=== PATIENT | male | born 1985 | race Caucasian/White ===

== ENCOUNTER 2019-09-29 16:02 | Emergency (ER) | payer BC, SELFPAY ==
[2019-09-29 16:09] VITALS: BP 165/94; PULSE 71; RESP 17; TEMP 36.8; O2SAT 99; BMI 30.1
[2019-09-29 16:22] VITALS: BP 165/94; PULSE 71; RESP 17; TEMP 36.8; O2SAT 99
--- NOTE | 2019-09-29 16:42 | HMH.EDUTC ---
[facility] [place] Clinical Impression: Cellulitis Qualifiers: Site of cellulitis: unspecified site Qualified Code(s): L03.90 - Cellulitis, unspecified Disposition: Home, Self-Care Condition on Discharge: Good Instructions: Cellulitis, Athlete's Foot, DI for Athlete's Foot Additional Instructions: Clean area well before applying cream *Take medication as prescribed *Follow up with Podiatry or Family doctor if symptoms continue or worsen Return if needed Straight to ER if any life threatening symptoms Prescriptions: cephALEXin [Keflex 500mg Cap] 500 mg PO Q6H 10 Days #40 cap Transmission Status: Received by [facility] Miconazole Nitrate [Miconazole 2% Cream 45gm] 1 applicatio TOPICAL BID #1 tube Transmission Status: Received by [facility] Referrals: Provider,Referral, [Primary Care Provider] - Parisa Saldivar DPM [Staff Physician] - As needed (Call office for appointment) Time of Disposition: 16:53 Medical Decision Making - Papa Inquiry Pt receiving controlled substance: No Papa was queried for this patient: No Vital Signs: 09/29/19 16:09 09/29/19 16:22 09/29/19 17:00 Temperature 98.2 F 98.2 F 98.2 F Temperature Source Oral Oral Pulse Rate 71 Pulse Rate [Radial] 71 71 Respiratory Rate 17 17 17 Blood Pressure 165/94 H Blood Pressure [Right Arm] 165/94 H 165/94 H Blood Pressure Mean [Right Arm] 117 117 Blood Pressure Source [Right Arm] Automatic Cuff Automatic Cuff Blood Pressure Position [Right Arm] Sitting Sitting 02 Sat by Pulse Oximetry 99 99 Oxygen Delivery Method Room Air Room Air [facility] [place] - General Stated complaint: Rash Right foot and leg Time Seen by Provider: 09/29/19 16:20 Mode of Arrival: Ambulatory Source of Information: Patient Limitations: No Limitations Description of Symptoms (Recalled from Triage Doc. by RN): Rash on the top and side of right foot for approx 2 weeks. States he thinks he had poison uli that has gotten worse and turned to staph HEENT Symptoms (Recalled from RN notes): No Resp Symptoms (Recalled from RN notes): No Skin Symptoms (Recalled from RN notes): Yes MS Symptoms (Recalled from RN notes): No Functional Status (Recalled from RN notes): WNL - History of Present Illness Provider Complaint: Patient states that for the last couple of weeks he has been having areas on his right foot and ankle area that was itching, red and irritated States that he thinks he may have have beem poison uli or something that has turned into staph now States that he has used several over the counter creams and nothing has helped States that rash will get itcy and feel dry then crack and drain at times - Related Data Home Medications Medication Instructions Recorded Confirmed buprenorphine 8 mg-naloxone 2 mg 2.5 tab SUBLINGUAL DAILY 08/19/19 09/29/19 sublingual tablet Previous Rx's Medication Instructions Recorded Miconazole Nitrate [Miconazole 2% 1 applicatio TOPICAL BID #1 tube 09/29/19 Cream 45gm] cephALEXin [Keflex 500mg Cap] 500 mg PO Q6H 10 Days #40 cap 09/29/19 Allergies Allergy/AdvReac Type Severity Reaction Status Date / Time No Known Allergies Allergy Verified 08/19/19 15:46 - Worker's Comp Is this a Worker's Comp case?: No [facility] [place] History - Hepatitis A Screen Drug use history?: No High risk sexual behaviors?: No History of sexually transmitted infection?: No Currently employed?: No Childcare worker?: No Do you have indoor plumbing?: Yes Do you have electricity?: Yes Attestation statement:: This patient has been screened for Hepatitis A risk factors. I have reviewed the patient's past medical history: Yes - Social History Smoking Status: Current every day smoker Tobacco Type: cigarettes # Packs/Day (cigarettes): 1 Alcohol Intake: never Occupational Status: other ROS Obtained: Yes All systems reviewed & no additional complaints, Yes Systems reviewed as appropriate & no additional complaints - Constit
[2019-09-29 17:00] VITALS: BP 165/94; PULSE 71; RESP 17; TEMP 36.8; O2SAT 99
== END 2019-09-29 17:02 | disposition home or self-care (01) ==
PROVIDERS: Emergency Provider Nurse Practitioner
DX: L03.115 Cellulitis of right lower limb (principal); F17.210 Nicotine dependence, cigarettes, uncomplicated
CPT/HCPCS: 99201

== ENCOUNTER 2019-10-14 13:10 | Emergency (ER) | payer BC, SELFPAY ==
[2019-10-14 13:31] VITALS: BP 131/78; PULSE 90; RESP 18; TEMP 36.6; O2SAT 98; BMI 30.1
--- NOTE | 2019-10-14 13:36 | HMH.EDUTC ---
[facility] – [place] Disposition Clinical Impression: Psoriasis Disposition: Home, Self-Care Condition on Discharge: Good Instructions: Psoriasis, DI for Psoriasis Additional Instructions: Don't start the oral steroids until tomorrow. You can start applying the topical steroid today. You may need to start seeing a stone driller helper, so please get a regular doctor and discuss a referral. Rest your foot and stay off of it for the next couple of days. Prescriptions: dexAMETHasone [Dexpak] 1.5 mg PO DIRECTED 10 Days #1 tab.ds.pk Transmission Status: Received by [facility] Hydrocortisone [Hydrocortisone 2.5% Cream 28gm Tube] 1 applicatio TP TID 7 Days #1 tube Transmission Status: Received by [facility] Referrals: Provider,Referral, MD [Primary Care Provider] - Forms: Work/School Release Time of Disposition: 13:53 Medical Decision Making - Medical Records Medical records reviewed: No: I reviewed the patient's medical records. - Papa Inquiry Pt receiving controlled substance: No Vital Signs: 10/14/19 13:31 10/14/19 14:02 Temperature 97.8 F 97.8 F Temperature Source Oral Oral Pulse Rate 78 Pulse Rate [Right Brachial] 90 Respiratory Rate 18 16 Blood Pressure 131/78 Blood Pressure [Right Arm] 131/78 Blood Pressure Mean [Right Arm] 95 Blood Pressure Source Automatic Cuff Blood Pressure Source [Right Arm] Automatic Cuff Blood Pressure Position Sitting Blood Pressure Position [Right Arm] Sitting 02 Sat by Pulse Oximetry 98 Oxygen Delivery Method Room Air Room Air Orders (Tests/Meds): ED MEDICATIONS Discontinued Medications Generic Name Dose Route Start Last Admin Trade Name Walterq PRN Reason Stop Dose Admin Methylprednisolone Sodium Succinate 125 mg 10/14/19 13:45 10/14/19 13:54 Solu-Medrol 125mg/2ml Vial IM 10/14/19 13:46 125 mg ONCE ONE Administration [facility] [place] HPI - General Stated complaint: skin pain on legs Time Seen by Provider: 10/14/19 13:36 Mode of Arrival: Ambulatory Source of Information: Patient Limitations: No Limitations Description of Symptoms (Recalled from Triage Doc. by RN): Pt c/o rash on his leg and foot HEENT Symptoms (Recalled from RN notes): No Resp Symptoms (Recalled from RN notes): No Skin Symptoms (Recalled from RN notes): Yes (rash) MS Symptoms (Recalled from RN notes): No Functional Status (Recalled from RN notes): na - History of Present Illness Provider Complaint: He has a history of psoriais that flares up periodically. Over the past 2 weeks he has been having a break out on his right foot and ankle. He does not have any medications at home to treat it like he usually does. He does not currently have a pcp. His work requires him to wear heavy boots. Walking all day in the heavy boots makes the skin irritation worse. - Related Data Home Medications Medication Instructions Recorded Confirmed buprenorphine 8 mg-naloxone 2 mg 2.5 tab SUBLINGUAL DAILY 08/19/19 09/29/19 sublingual tablet Previous Rx's Medication Instructions Recorded Miconazole Nitrate [Miconazole 2% 1 applicatio TOPICAL BID #1 tube 09/29/19 Cream 45gm] cephALEXin [Keflex 500mg Cap] 500 mg PO Q6H 10 Days #40 cap 09/29/19 Hydrocortisone [Hydrocortisone 1 applicatio TP TID 7 Days #1 tube 10/14/19 2.5% Cream 28gm Tube] dexAMETHasone [Dexpak] 1.5 mg PO DIRECTED 10 Days #1 10/14/19 tab.ds.pk Allergies Allergy/AdvReac Type Severity Reaction Status Date / Time No Known Allergies Allergy Verified 10/14/19 13:34 - Worker's Comp Is this a Worker's Comp case?: No [facility] History - Hepatitis A Screen Drug use history?: No High risk sexual behaviors?: No History of sexually transmitted infection?: No Currently employed?: No Childcare worker?: No Do you have indoor plumbing?: Yes Do you have electricity?: Yes Attestation statement:: This patient has been screened for Hepatitis A risk factors. I have reviewed the patient's past medical
[2019-10-14 14:02] VITALS: BP 131/78; PULSE 78; RESP 16; TEMP 36.6; O2SAT 98
== END 2019-10-14 14:02 | disposition home or self-care (01) ==
PROVIDERS: Emergency Provider Nurse Practitioner Family
DX: L40.9 Psoriasis, unspecified (principal); F17.210 Nicotine dependence, cigarettes, uncomplicated
CPT/HCPCS: 96372; 99201

== ENCOUNTER 2019-11-07 15:01 | Emergency (ER) | payer BC, SELFPAY ==
[2019-11-07 15:23] VITALS: BP 163/86; PULSE 71; RESP 20; TEMP 36.8; O2SAT 99; BMI 30.8
--- NOTE | 2019-11-07 15:28 | HMH.EDUTC ---
[facility] [place] Disposition Clinical Impression: Otitis media Qualifiers: Otitis media type: unspecified Laterality: left Qualified Code(s): H66.92 - Otitis media, unspecified, left ear Otitis externa Qualifiers: Otitis externa type: unspecified type Chronicity: unspecified Laterality: right Qualified Code(s): H60.91 - Unspecified otitis externa, right ear Disposition: Home, Self-Care Condition on Discharge: Good Instructions: Middle Ear Infection, Middle Ear Infections (Alternative Therapy), DI for Otitis Externa, Otitis Externa, Ofloxacin Otic, Amoxicillin Additional Instructions: Take medication as prescribed *Follow up with family doctor if no improvement or any worsening of symptoms Return if needed Over the counter Motrin and/or Tylenol as directed on package for pain and fever Straight to ER if any life threatening symptoms Prescriptions: Amoxicillin [Amoxicillin 500mg Cap] 500 mg PO TID #30 cap Transmission Status: Pending to [facility] Ofloxacin [Floxin 0.3% OTIC Solution 5mL] 5 drops EAR-RIGHT BID 7 Days #1 bottle Transmission Status: Pending to [facility] Referrals: Provider,Referral, MD [Primary Care Provider] - As needed Time of Disposition: 15:37 Medical Decision Making - Papa Inquiry Pt receiving controlled substance: No Papa was queried for this patient: No Vital Signs: 11/07/19 15:23 Temperature 98.2 F Temperature Source Oral Pulse Rate [Right Brachial] 71 Respiratory Rate 20 Blood Pressure [Right Arm] 163/86 H Blood Pressure Mean [Right Arm] 111 Blood Pressure Source [Right Arm] Automatic Cuff Blood Pressure Position [Right Arm] Sitting 02 Sat by Pulse Oximetry 99 Oxygen Delivery Method Room Air [facility] [place] HPI - General Stated complaint: ear infection both ears Time Seen by Provider: 11/07/19 15:28 Mode of Arrival: Ambulatory Source of Information: Patient Limitations: No Limitations Description of Symptoms (Recalled from Triage Doc. by RN): PATIENT C/O RIGHT EAR PAIN THAT STARTED LAST WEEK AND IS NOW BILATERALLY. DENIES FEVER. DOES C/O DECREASED HEARING. HEENT Symptoms (Recalled from RN notes): Yes Resp Symptoms (Recalled from RN notes): No Skin Symptoms (Recalled from RN notes): No MS Symptoms (Recalled from RN notes): No Functional Status (Recalled from RN notes): WNL - History of Present Illness Provider Complaint: Patient states that he has been having pain and drainage from right ear for about a week with some swelling in right ear and hurts when he touches it State that for the last couple of days he has been having pain in his left ear also States that today pain was worse so he came in to get them checked - Related Data Home Medications Medication Instructions Recorded Confirmed buprenorphine 8 mg-naloxone 2 mg 2.5 tab SUBLINGUAL DAILY 08/19/19 09/29/19 sublingual tablet Previous Rx's Medication Instructions Recorded Miconazole Nitrate [Miconazole 2% 1 applicatio TOPICAL BID #1 tube 09/29/19 Cream 45gm] cephALEXin [Keflex 500mg Cap] 500 mg PO Q6H 10 Days #40 cap 09/29/19 Hydrocortisone [Hydrocortisone 1 applicatio TP TID 7 Days #1 tube 10/14/19 2.5% Cream 28gm Tube] dexAMETHasone [Dexpak] 1.5 mg PO DIRECTED 10 Days #1 10/14/19 tab.ds.pk Amoxicillin [Amoxicillin 500mg 500 mg PO TID #30 cap 11/07/19 Cap] Ofloxacin [Floxin 0.3% OTIC 5 drops EAR-RIGHT BID 7 Days #1 11/07/19 Solution 5mL] bottle Allergies Allergy/AdvReac Type Severity Reaction Status Date / Time No Known Allergies Allergy Verified 10/14/19 13:34 - Worker's Comp Is this a Worker's Comp case?: No [facility] History - Hepatitis A Screen Drug use history?: No High risk sexual behaviors?: No History of sexually transmitted infection?: No Currently employed?: No Childcare worker?: No Do you have indoor plumbing?: Yes Do you have electricity?: Yes Attestation statement:: This patient has been screened for Hepatitis A risk factors. I have reviewed th
[2019-11-07 15:35] VITALS: BP 163/86; PULSE 71; RESP 20; TEMP 36.8; O2SAT 99
== END 2019-11-07 15:40 | disposition home or self-care (01) ==
PROVIDERS: Emergency Provider Nurse Practitioner
DX: H66.92 Otitis media, unspecified, left ear (principal); H60.91 Unspecified otitis externa, right ear; F17.210 Nicotine dependence, cigarettes, uncomplicated
CPT/HCPCS: 99201

== ENCOUNTER 2020-03-11 17:13 | Emergency (ER) | payer BC, SELFPAY ==
[2020-03-11 17:20] VITALS: BP 141/97; PULSE 84; RESP 18; TEMP 36.7; O2SAT 100; BMI 33.0
--- NOTE | 2020-03-11 17:24 | HMH.EDUTC ---
[facility] [place] Disposition Clinical Impression: Scabies, Sore throat Disposition: Home, Self-Care Condition on Discharge: Good Instructions: Sore Throat, Scabies, DI for Scabies Additional Instructions: Use cream as prescribed Apply cream from your neck to your toes before bed, lay down and leave on at least 8 hours then rinse off in shower If no improvement or any worsening of symptoms follow up with Family Doctor Follow up with Dermatology if rash continues or no improvement Over the counter Hydrocortisone cream may help with itching of the rash *Monitor Temp, Over the counter Motrin or Tylenol as directed/as needed Tylenol every 4 hours and Motrin every 6 hours (as long as your family doctor has told you that you can take it) for fever or pain. and straight to ER if unable to lower temp less than 101.0 after medication given *Warm salt water gargles may help to soothe the throat *Throat Lozenges *Warm fluids like tea with honey may help to soothe the throat *Sleep elevated *Humidifier/Vaporizer Your throat swab was sent for culture. Those results are typically sent to your primary care. Be sure to follow up in 2-3 days with your family doctor/primary care physician if no improvement so they can review those result and treat if necessary. If you don?t have a primary care doctor, I recommend you get one but in the mean time, you will have to return to a walk in clinic Follow up IMMEDIATELY for new or worsening symptoms or no Noticeable improvement over the next 48-72 hours. 911 for difficulty breathing or swallowing You was tested for today for COVID19 your test result should be back later this evening, you may call back later this evening to see if your test results are back and the result You was given a handout with instructions for Self Quarantine and Self isolation for while you wait on test results and what to do if they are positive Prescriptions: Permethrin [Elimite 5% cream 60gm tube] 1 applicatio TP ONCE #1 tube Transmission Status: Received by [facility] Referrals: PCP,No [Primary Care Provider] - As needed Forms: Work/School Release Time of Disposition: 17:53 Medical Decision Making - Papa Inquiry Pt receiving controlled substance: No Papa was queried for this patient: No Vital Signs: 03/11/20 17:20 Temperature 98.1 F Temperature Source Oral Pulse Rate [Radial] 84 Respiratory Rate 18 Blood Pressure [Right Arm] 141/97 H Blood Pressure Mean [Right Arm] 111 Blood Pressure Source [Right Arm] Automatic Cuff Blood Pressure Position [Right Arm] Sitting 02 Sat by Pulse Oximetry 100 Oxygen Delivery Method Room Air - Lab Data Lab results reviewed: Yes: I reviewed the patient's lab results. Orders (Tests/Meds): ED MEDICATIONS Discontinued Medications Generic Name Dose Route Start Last Admin Trade Name Glory PRN Reason Stop Dose Admin Methylprednisolone Sodium Succinate 125 mg 03/11/20 17:41 03/11/20 17:44 Methylprednisolone Sod Succ 125mg Vial IM 03/11/20 17:42 125 mg ONCE ONE Administration ORDERS Category Date Time Status Covid-19 Nasal PCR ([facility]) Routine Lab 03/11/20 17:41 Ordered [facility] [place] HPI - General Stated complaint: Sore throat Time Seen by Provider: 03/11/20 17:24 Mode of Arrival: Ambulatory Source of Information: Patient Limitations: No Limitations Description of Symptoms (Recalled from Triage Doc. by RN): throat pain and blisters since thursday. HEENT Symptoms (Recalled from RN notes): Yes Resp Symptoms (Recalled from RN notes): No Skin Symptoms (Recalled from RN notes): No MS Symptoms (Recalled from RN notes): No Functional Status (Recalled from RN notes): wnl - History of Present Illness Provider Complaint: Patient states that he started having sore throat on Thursday and it has continued to get worse States that it hurts when he swallows or coughs States that also he noticed he had a rash all over his upper arms, around his wrist and around his
[2020-03-11 17:56] LABS: UTC Strep Screen (Rapid) Negative (Negative)
[2020-03-11 18:09] VITALS: BP 141/97; PULSE 84; RESP 18; TEMP 36.7; O2SAT 100
== END 2020-03-11 18:10 | disposition home or self-care (01) ==
PROVIDERS: Emergency Provider Nurse Practitioner
DX: B86 Scabies (principal); J02.9 Acute pharyngitis, unspecified; Z20.828 Contact with and (suspected) exposure to other viral communicable diseases
CPT/HCPCS: 87880; 96372; 99202; U0003

== ENCOUNTER 2020-03-28 13:57 | Emergency (ER) | payer BC, SELFPAY ==
[2020-03-28 14:09] VITALS: BP 143/91; PULSE 95; RESP 18; TEMP 37.4; O2SAT 98; BMI 30.1
--- NOTE | 2020-03-28 14:14 | HMH.EDUTC ---
[facility] [place] Disposition Clinical Impression: Viral syndrome Cellulitis Qualifiers: Site of cellulitis: extremity Site of cellulitis of extremity: lower extremity Laterality: left Qualified Code(s): L03.116 - Cellulitis of left lower limb Disposition: Home, Self-Care Condition on Discharge: Good Instructions: Cellulitis, Cephalexin, Preventing the Spread of Coronavirus Discharge Instructions Additional Instructions: *Start antibiotic(s) immediately and be sure to take as ordered for the FULL length of time although you may be feeling better or start to see improvement in the next 24-48 hours *Monitor closely. Outlined redness so that you can monitor easier. Follow up immediately for new or worsening symptoms including but not limited to redness, swelling, streaking from site fever or chills. *Warm compress 15 minutes 3-4 times day *Never squeeze or pop these on your own. Seek immediate medical attention next time this occurs *Monitor Temp. Tylenol every 4 hours as needed and ibuprofen every 6 hours as needed (as long as your primary care doctor has told you that it is ok to take both. For fever, aches, pain. ER if no less that 101 despite Tylenol and ibuprofen Follow up with your family doctor/primary care physician in the next 48-72 hours if no improvement Follow up with Dermatology as scheduled Return if needed Straight to ER if any life threatening symptoms Over the counter Neosporin to burn on elbow Prescriptions: cephALEXin [Keflex 500mg Cap] 500 mg PO Q6H 7 Days #28 cap Transmission Status: Pending to [facility] Referrals: Colette Patel APRN [Primary Care Provider] - As needed Forms: Work/School Release Time of Disposition: 14:24 Medical Decision Making - Papa Inquiry Pt receiving controlled substance: No Papa was queried for this patient: No Vital Signs: 03/28/20 14:09 Temperature 99.3 F Temperature Source Oral Pulse Rate [Radial] 95 H Respiratory Rate 18 Blood Pressure [Right Arm] 143/91 H Blood Pressure Mean [Right Arm] 108 Blood Pressure Source [Right Arm] Automatic Cuff Blood Pressure Position [Right Arm] Sitting 02 Sat by Pulse Oximetry 98 Oxygen Delivery Method Room Air [facility] [place] HPI - General Stated complaint: body aches,fever Time Seen by Provider: 03/28/20 14:14 Mode of Arrival: Ambulatory Source of Information: Patient Limitations: No Limitations Description of Symptoms (Recalled from Triage Doc. by RN): WEAK, FEVER. HEENT Symptoms (Recalled from RN notes): Yes Resp Symptoms (Recalled from RN notes): No Skin Symptoms (Recalled from RN notes): No MS Symptoms (Recalled from RN notes): No Functional Status (Recalled from RN notes): WNL - History of Present Illness Provider Complaint: Patient states that he was at work earlier and started feeling bad and had a fever States that he has been feeling achy and has redness and mild swelling to his left foot where he thinks he may have cellulitis and that could be causing him to not feel well States that work made him come in and get tested for COVID - Related Data Home Medications Medication Instructions Recorded Confirmed buprenorphine 8 mg-naloxone 2 mg 2.5 tab SUBLINGUAL DAILY 08/19/19 03/16/20 sublingual tablet Previous Rx's Medication Instructions Recorded prednisone 20 mg tablet 20 mg PO BID #10 tab 03/16/20 triamcinolone acetonide 0.025 % 1 applic TOPICAL BID #15 g 03/18/20 topical cream crisaborole 2 % topical ointment 1 applic TOPICAL BID #60 g 03/22/20 cephALEXin [Keflex 500mg Cap] 500 mg PO Q6H 7 Days #28 cap 03/28/20 Allergies Allergy/AdvReac Type Severity Reaction Status Date / Time No Known Allergies Allergy Verified 03/22/20 15:54 - Worker's Comp Is this a Worker's Comp case?: No [facility] History - Hepatitis A Screen Drug use history?: No High risk sexual behaviors?: No History of sexually transmitted infection?: No Currently employed?: No Childcare worker?: No Do you have i
[2020-03-28 14:45] VITALS: BP 143/91; PULSE 95; RESP 18; TEMP 37.4; O2SAT 98
== END 2020-03-28 14:46 | disposition home or self-care (01) ==
PROVIDERS: Emergency Provider Nurse Practitioner; PCP Nurse Practitioner Family
DX: B34.9 Viral infection, unspecified (principal); L03.116 Cellulitis of left lower limb; Z20.828 Contact with and (suspected) exposure to other viral communicable diseases; F17.290 Nicotine dependence, other tobacco product, uncomplicated
CPT/HCPCS: 99201; U0003

== ENCOUNTER → 2020-07-06 08:33 | Outpatient (CLI) | payer BC, SELFPAY ==
[2020-07-09 08:47] LABS: Alanine Aminotransferase 90 U/L (12-78); Albumin Level 4.7 g/dl (3.5-5.0); Alkaline Phosphatase 111 U/L (38-126); Anion Gap 17.5 mEq/L (5-15); Aspartate Amino Transferase 53 U/L (17-59); Bilirubin,Total 0.5 mg/dl (0.2-1.3); Blood Urea Nitrogen 10 mg/dl (9-20); Calcium 10.1 mg/dl (8.4-10.2); Carbon Dioxide 31 mmol/L (22.0-30.0); Chloride 96 mmol/L (98-107); Estimated Glomerular Filt Rate 111 ml/min (>60); GFR (African American) 135 ML/MIN (>60); Globulin 4.6 g/dL (1.3-3.2); Glucose 87 mg/dl (74-100); Potassium 4.5 mmoL/L (3.5-5.1); Sodium 140 mmol/L (136-145); Total Protein,Serum 9.3 g/dl (6.3-8.2)
[2020-07-09 10:08] LABS: Hematocrit 52.1 % (42.0-52.0); Hemoglobin 17.6 g/dL (14.1-18.0); Mean Corpuscular HGB Conc 33.8 g/dL (31.8-35.4); Mean Corpuscular Hemoglobin 32.9 pg (27.0-31.2); Mean Corpuscular Volume 97.2 fl (80-94); Mean Platelet Volume 9.1 fl (7.4-10.4); Neutrophils % 66.9 % (37.0-80.0); Platelet Count 376 K/mm3 (142-424); Red Blood Count 5.36 M/mm3 (4.60-6.20)
[2020-07-09 10:09] LABS: Basophils % 0.6 % (0.1-2.0); Eosinophils % 1.3 % (0.1-12.0); Lymphocytes % 24.3 % (10-50); Monocytes % 6.9 % (1.7-9.3)
[2020-07-09 10:10] LABS: Basophils # 0.1 K/mm3 (0-0.2); Eosinophils # 0.1 K/mm3 (0.0-0.4); Lymphocytes # 2.2 K/mm3 (0.7-4.5); Monocytes # 0.6 K/mm3 (0.1-1.0)
[2020-07-10 10:29] LABS: Hep A Ab, IgM Negative (Negative); Hepatitis B Core Antibody IgM Negative (Negative); Hepatitis B Surface Antigen Negative (Negative)
[2020-07-10 11:23] LABS: Hepatitis C Antibody >11.0 s/co ratio (0.0-0.9)
== END ==
PROVIDERS: Visit Provider Nurse Practitioner Family
DX: L40.9 Psoriasis, unspecified (principal); B18.2 Chronic viral hepatitis C
CPT/HCPCS: 80053; 80074; 85025

== ENCOUNTER 2020-10-30 09:29 | Emergency (ER) | payer BC, SELFPAY ==
[2020-10-30 09:30] VITALS: BP 143/92; PULSE 80; RESP 16; TEMP 36.8; O2SAT 98; BMI 27.9
--- NOTE | 2020-10-30 09:47 | HMH.EDUTC ---
[facility] [place] Disposition Clinical Impression: Cellulitis Qualifiers: Site of cellulitis: extremity Site of cellulitis of extremity: upper extremity Laterality: left Qualified Code(s): L03.114 - Cellulitis of left upper limb Disposition: Home, Self-Care Condition on Discharge: Good Instructions: Acidophilus and Other Probiotics (Alternative Therapy), Cellulitis, Clindamycin, Cephalexin Additional Instructions: *Start antibiotic(s) immediately and be sure to take as ordered for the FULL length of time although you may be feeling better or start to see improvement in the next 24-48 hours *Monitor closely. Outlined redness so that you can monitor easier. Follow up immediately for new or worsening symptoms including but not limited to redness, swelling, streaking from site fever or chills. *Warm compress 15 minutes 3-4 times day *Never squeeze or pop these on your own. Seek immediate medical attention next time this occurs *Monitor Temp. Tylenol every 4 hours as needed and ibuprofen every 6 hours as needed (as long as your primary care doctor has told you that it is ok to take both. For fever, aches, pain. ER if no less that 101 despite Tylenol and ibuprofen Follow up with your family doctor/primary care physician in the next 48-72 hours if no improvement Return if needed Straight to ER if any life threatening symptoms Make sure that you are taking a Probiotic or eating yogurt with this medication to help prevent GI issues and upset stomach Prescriptions: cephALEXin [cephALEXin 500mg capsule*] 500 mg PO Q6H 7 Days #28 cap Transmission Status: Pending to [facility] clindamycin HCL [Clindamycin HCl] 300 mg PO Q8H 7 Days #21 cap Transmission Status: Pending to [facility] Referrals: Colette Patel APRN [Primary Care Provider] - As needed Forms: Work/School Release Time of Disposition: 10:02 Medical Decision Making - Papa Inquiry Pt receiving controlled substance: No Papa was queried for this patient: No Vital Signs: 10/30/20 09:30 10/30/20 09:56 Temperature 98.3 F 98.3 F Temperature Source Oral Pulse Rate 80 Pulse Rate [Left Brachial] 80 Respiratory Rate 16 16 Blood Pressure 143/92 H Blood Pressure [Left Arm] 143/92 H Blood Pressure Mean [Left Arm] 109 Blood Pressure Source [Left Arm] Automatic Cuff Blood Pressure Position [Left Arm] Sitting 02 Sat by Pulse Oximetry 98 Oxygen Delivery Method Room Air Medical Decision Narrative: Patient medication and history discussed with pharmacy and will treat with Clindamycin and Cephalexin for cellulitis of left hand Recommended xray of hand to make sure that no FB remains and patient refused xray state that he didnt want it [facility] [place] HPI - General Stated complaint: 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
[2020-10-30 09:56] VITALS: BP 143/92; PULSE 80; RESP 16; TEMP 36.8; O2SAT 98
== END 2020-10-30 10:05 | disposition home or self-care (01) ==
PROVIDERS: Emergency Provider Nurse Practitioner; PCP Nurse Practitioner Family
DX: L03.114 Cellulitis of left upper limb (principal); S61.032A Puncture wound without foreign body of left thumb without damage to nail, initial encounter; W26.9XXA Contact with unspecified sharp object(s), initial encounter; Y92.9 Unspecified place or not applicable; F17.290 Nicotine dependence, other tobacco product, uncomplicated
CPT/HCPCS: 99202; G0463

== ENCOUNTER 2021-03-31 14:53 | Emergency (ER) | payer SELFPAY ==
[2021-03-31 15:14] VITALS: BP 128/95; PULSE 62; RESP 18; TEMP 36.8; O2SAT 62; BMI 31.5
[2021-03-31 15:40] LABS: UTC Strep Screen (Rapid) Negative (Negative)
--- NOTE | 2021-03-31 16:43 | HMH.EDUTC ---
[facility] [place] Clinical Impression: Viral syndrome Sinusitis Qualifiers: Sinusitis location: unspecified location Chronicity: acute Recurrence: non-recurrent Qualified Code(s): J01.90 - Acute sinusitis, unspecified Disposition: Home, Self-Care Condition on Discharge: Good Instructions: DI for Sinusitis, Preventing the Spread of Coronavirus Discharge Instructions Additional Instructions: Drink plenty of fluids. Take tylenol or ibuprofen for pain or fever. Take the medications as directed. Follow up with your regular doctor. GO TO THE ER FOR ANY WORSENING SYMPTOMS Quarantine until you know the results of your covid-19 test. If it is positive, the health department should call you and give you further instructions about your length of Quarantine and other things. Notify your school or workplace of your results and follow their instructions regarding return to work/school. His work excuse needs to apply back to 03/29/21. Prescriptions: Brompheniramine/Pseudoephed/Dm [Bromfed Dm Cough Syrup] 5 ml PO Q6HP PRN #240 ml PRN Reason: Cough Transmission Status: Received by [facility] methylPREDNISolone [Medrol] 4 mg PO DIRECTED 6 Days #21 packet Transmission Status: Received by [facility] Azithromycin [Z-Uziel 250mg Tab*] 250 mg PO UD DOSE PK #6 tab Transmission Status: Received by [facility] Referrals: Colette Patel APRN [Primary Care Provider] - Forms: Work/School Release Time of Disposition: 16:50 Medical Decision Making - Medical Records Medical records reviewed: No: I reviewed the patient's medical records. - Papa Inquiry Pt receiving controlled substance: No Vital Signs: 03/31/21 15:14 03/31/21 16:53 Temperature 98.3 F 98.3 F Temperature Source Oral Pulse Rate 62 Pulse Rate [Right Brachial] 62 Respiratory Rate 18 18 Blood Pressure 128/95 H Blood Pressure [Right Arm] 128/95 H Blood Pressure Mean [Right Arm] 106 Blood Pressure Source [Right Arm] Automatic Cuff Blood Pressure Position [Right Arm] Sitting 02 Sat by Pulse Oximetry 62 L Oxygen Delivery Method Room Air - Lab Data Lab results reviewed: Yes: I reviewed the patient's lab results. Lab Results 03/31/21 15:19: Strep Scn Rapid Clinic Negative Orders (Tests/Meds): ORDERS Category Date Time Status Strep Screen Confirmation Routine Micro 03/31/21 15:19 Received [facility] [place] HPI - General Stated complaint: possible sinus infection Time Seen by Provider: 03/31/21 16:43 Mode of Arrival: Ambulatory Source of Information: Patient Limitations: No Limitations Description of Symptoms (Recalled from Triage Doc. by RN): sinus inf. body aches HEENT Symptoms (Recalled from RN notes): Yes Resp Symptoms (Recalled from RN notes): Yes Skin Symptoms (Recalled from RN notes): No MS Symptoms (Recalled from RN notes): No Functional Status (Recalled from RN notes): yes - History of Present Illness Provider Complaint: He states that he has had sinus congestion and sore throat for the past 3 days. - Related Data Home Medications Medication Instructions Recorded Confirmed Buprenorphine HCl/Naloxone HCl 2 tab SL DAILY 10/30/20 11/01/20 [Buprenorphine-Nalox 8-2 mg Tab] Previous Rx's Medication Instructions Recorded escitalopram oxalate 10 mg tablet 10 mg PO DAILY #30 tab 11/01/20 hydroxyzine pamoate 25 mg capsule 25 mg PO TID PRN #60 cap 11/01/20 Azithromycin [Z-Uziel 250mg Tab*] 250 mg PO UD DOSE PK #6 tab 03/31/21 Brompheniramine/Pseudoephed/Dm 5 ml PO Q6HP PRN #240 ml 03/31/21 [Bromfed Dm Cough Syrup] methylPREDNISolone [Medrol] 4 mg PO DIRECTED 6 Days #21 03/31/21 packet Allergies Allergy/AdvReac Type Severity Reaction Status Date / Time No Known Allergies Allergy Verified 11/01/20 10:46 - Worker's Comp Is this a Worker's Comp case?: No Is this an H Worker's Comp?: No Is this a Horace Worker's Comp?: No [facility] History
[2021-03-31 16:53] VITALS: BP 128/95; PULSE 62; RESP 18; TEMP 36.8
== END 2021-03-31 16:53 | disposition home or self-care (01) ==
PROVIDERS: Emergency Provider Nurse Practitioner Family; PCP Nurse Practitioner Family
DX: U07.1 COVID-19 (principal); J01.90 Acute sinusitis, unspecified; F17.290 Nicotine dependence, other tobacco product, uncomplicated
CPT/HCPCS: 87880; 99202; C9803; G0463; U0003; U0005